=== PATIENT | male | born 1950 | race Caucasian/White ===

== ENCOUNTER 2021-08-30 16:06 | Inpatient (IN) ==
[2021-08-30] MEDS ORDERED: Isovue-370 500 ML BOTTLE IVP ONE (17:28)
[2021-08-30 17:49] LABS: Basophils # 0.1 K/mcL (0.0-0.2); Basophils % 0.5 %; Eosinophils # 0.2 K/mcL (0.0-0.6); Eosinophils % 1.8 %; Hematocrit 44.8 % (37.5-50.1); Hemoglobin 14.7 g/dL (12.9-16.9); Immature Granulocytes % 0.3 % (0-4); Lymphocytes # 2.8 K/mcL (0.6-4.6); Lymphocytes % 27.1 %; Mean Corpuscular HGB Conc 32.8 g/dL (31.6-35.5); Mean Corpuscular Volume 91.4 fL (83.0-100.0); Mean Platelet Volume 9.8 fL (9.4-12.4); Monocytes # 0.9 K/mcL (0.0-1.3); Monocytes % 8.8 %; Neutrophils # 6.4 K/mcL (1.6-8.9); Platelet Count 283 K/mcL (140-400); Red Cell Distribution Width 14.7 % (11.5-14.5); Segmented Neutrophils % 61.5 %; White Blood Count 10.4 K/mcL (4.3-11.1)
[2021-08-30 18:03] LABS: Alanine Aminotransferase 654 Units/L (7-52); Albumin 4.2 g/dL (3.5-5.7); Albumin/Globulin Ratio 1.1 (1.1-2.2); Alkaline Phosphatase 180 Units/L (34-104); Aspartate Amino Transferase 289 Units/L (13-39); BUN/Creatinine Ratio 18 (6-26); Bilirubin,Direct 1.7 mg/dL (0.0-0.2); Bilirubin,Indirect 1.9 mg/dL (0.0-1.0); Bilirubin,Total 3.6 mg/dL (0.3-1.0); Blood Urea Nitrogen 16 mg/dL (8-23); Calcium 9.4 mg/dL (8.6-10.3); Carbon Dioxide 17 mEq/L (23-29); Chloride 113 mEq/L (98-107); Globulin 3.7 g/dL (2.4-3.5); Glucose 87 mg/dL (70-105); Osmolality,Calculated 291 (280-300); Potassium 4.6 mEq/L (3.5-5.1); Sodium 140 mEq/L (136-145); Total Protein 7.9 g/dL (6.4-8.9); eGFR For African Americans > 60 (> 60); eGFR For Non-African Americans > 60 (> 60)
[2021-08-30 18:12] LABS: INR 1.2; Prothrombin Time 13.2 Seconds (9.4-12.1)
[2021-08-30 18:14] LABS: Activated Partial Thrombo Time 36.4 Seconds (26.0-36.0)
[2021-08-30] MEDS ORDERED: Naloxone 0.4 MG/ML INJ IVP PRN (22:50)
[2021-08-30] MEDS ORDERED: Ondansetron 4 MG/2 ML VIAL IVP PRN (22:50)
[2021-08-30] MEDS ORDERED: Dextrose Gel 15 GM/37.5 ML TUBE PO PRN ×2 (22:51)
[2021-08-30] MEDS ORDERED: D5% in Water 1,000 ML IVC PRN (22:51)
[2021-08-30] MEDS ORDERED: *HR* Dextrose 50 % in Water (Syg) 50 ML SYRINGE IVP PRN (22:51)
[2021-08-31] MEDS ORDERED: Ketorolac 30 MG/ML VIAL IVP PRN (04:09)
[2021-08-31] MEDS ORDERED: 0.9 % Sodium Chloride 1,000 ML IVC SCH ×2 (04:15→10:44)
[2021-08-31 05:31] LABS: Basophils # 0.1 K/mcL (0.0-0.2); Basophils % 0.5 %; Eosinophils # 0.2 K/mcL (0.0-0.6); Eosinophils % 2.3 %; Hematocrit 42.7 % (37.5-50.1); Immature Granulocytes % 0.2 % (0-4); Lymphocytes # 3.1 K/mcL (0.6-4.6); Lymphocytes % 33.1 %; Mean Corpuscular HGB Conc 32.8 g/dL (31.6-35.5); Mean Corpuscular Volume 91.4 fL (83.0-100.0); Mean Platelet Volume 9.7 fL (9.4-12.4); Monocytes % 10.2 %; Platelet Count 249 K/mcL (140-400); Red Blood Count 4.67 M/mcL (4.19-5.50); Segmented Neutrophils % 53.7 %; White Blood Count 9.3 K/mcL (4.3-11.1)
[2021-08-31 05:34] LABS: INR 1.2; Prothrombin Time 13.3 Seconds (9.4-12.1)
[2021-08-31 06:10] LABS: Alanine Aminotransferase 613 Units/L (7-52); Albumin 3.9 g/dL (3.5-5.7); Albumin/Globulin Ratio 1.3 (1.1-2.2); Alkaline Phosphatase 180 Units/L (34-104); Aspartate Amino Transferase 279 Units/L (13-39); BUN/Creatinine Ratio 16 (6-26); Bilirubin,Direct 3.4 mg/dL (0.0-0.2); Bilirubin,Indirect 1.2 mg/dL (0.0-1.0); Bilirubin,Total 4.6 mg/dL (0.3-1.0); Blood Urea Nitrogen 13 mg/dL (8-23); Calcium 9.3 mg/dL (8.6-10.3); Carbon Dioxide 18 mEq/L (23-29); Chloride 113 mEq/L (98-107); Glucose 76 mg/dL (70-105); Magnesium 2.1 mg/dL (1.6-2.6); Osmolality,Calculated 289 (280-300); Phosphorous 2.9 mg/dL (2.7-4.5); Potassium 3.4 mEq/L (3.5-5.1); Sodium 140 mEq/L (136-145); Total Protein 6.9 g/dL (6.4-8.9); Troponin I < 0.03 ng/mL (< 0.04); eGFR For African Americans > 60 (> 60); eGFR For Non-African Americans > 60 (> 60)
[2021-08-31] MEDS: Latanoprost 2.5 ML BOTTLE BOTH EYES SCH ×2 (08:04→20:11)
[2021-08-31] MEDS ORDERED: Ondansetron 4 MG/2 ML VIAL IVP PRN (09:53)
[2021-08-31] MEDS ORDERED: *HR* FentaNYL (PF) 100 MCG/2 ML VIAL IVP PRN (09:53)
[2021-08-31] MEDS ORDERED: *HR* FentaNYL (PF) 100 MCG/2 ML VIAL ONE ×4 (10:14→13:02)
[2021-08-31] MEDS ORDERED: Lidocaine -MPF 2% 2 ML VIAL ONE (10:14)
[2021-08-31] MEDS ORDERED: Ondansetron 4 MG/2 ML VIAL ONE (10:14)
[2021-08-31] MEDS ORDERED: *HR* Propofol 200 MG/20 ML VIAL IVP ONE (10:14)
[2021-08-31] MEDS ORDERED: *HR* Succinylcholine 200 MG/10 ML VIAL IVP ONE (10:14)
[2021-08-31] MEDS ORDERED: Lidocaine HCL 4 ML Topical Solution (Laryng-O-Jet Kit Sterile Pak) TP ONE (10:15)
[2021-08-31] MEDS ORDERED: Isovue-370 500 ML BOTTLE IVP ONE (10:51)
[2021-08-31] MEDS ORDERED: Potassium Chloride Elixir 20 MEQ/15 ML UDC PO ONE (10:52)
[2021-08-31] MEDS: Aspirin Enteric Coated 81 MG Tablet PO SCH (17:40)
[2021-08-31] MEDS: amLODIPine 5 MG TABLET PO SCH (17:40)
[2021-08-31] MEDS: allopurinoL 100 MG TABLET PO SCH (17:41)
[2021-08-31] MEDS ORDERED: *HR* Labetalol 20 MG/4 ML SYRINGE IVP ONE (21:57)
[2021-09-01] MEDS ORDERED: Mag Hydrox/Al Hydrox/Simeth 30 ML UDC PO PRN (03:19)
[2021-09-01 03:52] LABS: Basophils % 0.2 %; Hematocrit 42.7 % (37.5-50.1); Hemoglobin 14.2 g/dL (12.9-16.9); Immature Granulocytes % 0.4 % (0-4); Lymphocytes # 2.3 K/mcL (0.6-4.6); Lymphocytes % 18.7 %; Mean Corpuscular HGB Conc 33.3 g/dL (31.6-35.5); Mean Corpuscular Volume 90.1 fL (83.0-100.0); Monocytes % 8.5 %; Neutrophils # 8.8 K/mcL (1.6-8.9); Platelet Count 260 K/mcL (140-400); Red Blood Count 4.74 M/mcL (4.19-5.50); Red Cell Distribution Width 15.2 % (11.5-14.5); Segmented Neutrophils % 72.2 %; White Blood Count 12.2 K/mcL (4.3-11.1)
[2021-09-01 04:37] LABS: Alanine Aminotransferase 615 Units/L (7-52); Albumin 3.9 g/dL (3.5-5.7); Albumin/Globulin Ratio 1.2 (1.1-2.2); Alkaline Phosphatase 186 Units/L (34-104); Aspartate Amino Transferase 239 Units/L (13-39); BUN/Creatinine Ratio 23 (6-26); Bilirubin,Direct 0.4 mg/dL (0.0-0.2); Bilirubin,Indirect 1.1 mg/dL (0.0-1.0); Bilirubin,Total 1.5 mg/dL (0.3-1.0); Blood Urea Nitrogen 18 mg/dL (8-23); Calcium 8.9 mg/dL (8.6-10.3); Carbon Dioxide 19 mEq/L (23-29); Chloride 108 mEq/L (98-107); Globulin 3.3 g/dL (2.4-3.5); Glucose 139 mg/dL (70-105); Osmolality,Calculated 292 (280-300); Potassium 3.5 mEq/L (3.5-5.1); Sodium 139 mEq/L (136-145); Total Protein 7.2 g/dL (6.4-8.9); eGFR For African Americans > 60 (> 60); eGFR For Non-African Americans > 60 (> 60)
[2021-09-01 07:42] VITALS: PULSE 58
[2021-09-01] MEDS: allopurinoL 100 MG TABLET PO SCH (08:13)
[2021-09-01] MEDS: Aspirin Enteric Coated 81 MG Tablet PO SCH (08:13)
[2021-09-01] MEDS: amLODIPine 5 MG TABLET PO SCH (08:13)
[2021-09-01 11:12] VITALS: BP 181/69; TEMP 97.7; O2SAT 95
== END 2021-09-01 15:54 | disposition home or self-care (01) | DRG 445 ==
LOC: EMEROOARM 16:06 → 3ANU 16:06 → SUATTDRO 18:33 → 3ANU 19:50
PROVIDERS: ADMIT Internal Medicine; ATTEND Family Medicine
PROC: ENDOEUS (2021-08-31 10:00)

== ENCOUNTER 2021-09-10 18:35 | Inpatient (IN) ==
[2021-09-10] MEDS ORDERED: Isovue-370 500 ML BOTTLE IVP ONE ×2 (20:11→20:19)
[2021-09-10 20:29] LABS: Basophils # 0.1 K/mcL (0.0-0.2); Basophils % 0.4 %; Eosinophils # 0.5 K/mcL (0.0-0.6); Eosinophils % 3.8 %; Hematocrit 40.3 % (37.5-50.1); Hemoglobin 13.5 g/dL (12.9-16.9); Immature Granulocytes % 0.4 % (0-4); Lymphocytes # 3.4 K/mcL (0.6-4.6); Lymphocytes % 24.8 %; Mean Corpuscular HGB Conc 33.5 g/dL (31.6-35.5); Mean Corpuscular Hemoglobin 29.7 pg (28.0-33.3); Mean Corpuscular Volume 88.8 fL (83.0-100.0); Mean Platelet Volume 9.1 fL (9.4-12.4); Monocytes # 1.4 K/mcL (0.0-1.3); Monocytes % 9.9 %; Neutrophils # 8.4 K/mcL (1.6-8.9); Platelet Count 396 K/mcL (140-400); Red Blood Count 4.54 M/mcL (4.19-5.50); Red Cell Distribution Width 13.9 % (11.5-14.5); Segmented Neutrophils % 60.7 %; White Blood Count 13.8 K/mcL (4.3-11.1)
[2021-09-10 21:08] LABS: Alanine Aminotransferase 54 Units/L (7-52); Albumin 3.6 g/dL (3.5-5.7); Alkaline Phosphatase 89 Units/L (34-104); Aspartate Amino Transferase 25 Units/L (13-39); BUN/Creatinine Ratio 20 (6-26); Bilirubin,Total 0.5 mg/dL (0.3-1.0); Blood Urea Nitrogen 16 mg/dL (8-23); Calcium 9.6 mg/dL (8.6-10.3); Carbon Dioxide 23 mEq/L (23-29); Chloride 104 mEq/L (98-107); Globulin 3.7 g/dL (2.4-3.5); Glucose 98 mg/dL (70-105); Lipase 1630 Units/L (11-82); Osmolality,Calculated 283 (280-300); Potassium 3.7 mEq/L (3.5-5.1); Sodium 136 mEq/L (136-145); Total Protein 7.3 g/dL (6.4-8.9); Troponin I < 0.03 ng/mL (< 0.04); eGFR For African Americans > 60 (> 60); eGFR For Non-African Americans > 60 (> 60)
[2021-09-10] MEDS ORDERED: GI Cocktail 40 ML EACH PO ONE (21:12)
[2021-09-10] MEDS ORDERED: 0.9 % Sodium Chloride 1,000 ML IV ONE (21:45)
[2021-09-11] MEDS ORDERED: Naloxone 0.4 MG/ML INJ IVP PRN (00:31)
[2021-09-11] MEDS ORDERED: Ondansetron 4 MG/2 ML VIAL IVP PRN (00:31)
[2021-09-11] MEDS: 0.9 % Sodium Chloride 1,000 ML IVC SCH ×5 (01:12→23:58)
[2021-09-11 04:53] LABS: Basophils # 0.1 K/mcL (0.0-0.2); Basophils % 0.5 %; Eosinophils # 0.5 K/mcL (0.0-0.6); Eosinophils % 3.8 %; Hemoglobin 13.1 g/dL (12.9-16.9); Immature Granulocytes % 0.3 % (0-4); Lymphocytes # 3.4 K/mcL (0.6-4.6); Lymphocytes % 25.8 %; Mean Corpuscular HGB Conc 32.8 g/dL (31.6-35.5); Mean Corpuscular Hemoglobin 29.2 pg (28.0-33.3); Mean Corpuscular Volume 89.1 fL (83.0-100.0); Mean Platelet Volume 9.3 fL (9.4-12.4); Monocytes # 1.3 K/mcL (0.0-1.3); Monocytes % 9.6 %; Platelet Count 362 K/mcL (140-400); Red Blood Count 4.49 M/mcL (4.19-5.50); Red Cell Distribution Width 13.8 % (11.5-14.5); White Blood Count 13.3 K/mcL (4.3-11.1)
[2021-09-11 04:58] LABS: INR 1.3; Prothrombin Time 14.3 Seconds (9.4-12.1)
[2021-09-11 05:14] LABS: Alanine Aminotransferase 50 Units/L (7-52); Albumin 3.3 g/dL (3.5-5.7); Albumin/Globulin Ratio 0.9 (1.1-2.2); Alkaline Phosphatase 86 Units/L (34-104); Aspartate Amino Transferase 26 Units/L (13-39); BUN/Creatinine Ratio 21 (6-26); Bilirubin,Total 0.5 mg/dL (0.3-1.0); Blood Urea Nitrogen 13 mg/dL (8-23); Calcium 9.1 mg/dL (8.6-10.3); Carbon Dioxide 24 mEq/L (23-29); Chloride 106 mEq/L (98-107); Globulin 3.5 g/dL (2.4-3.5); Glucose 105 mg/dL (70-105); Osmolality,Calculated 286 (280-300); Potassium 3.6 mEq/L (3.5-5.1); Sodium 138 mEq/L (136-145); Total Protein 6.8 g/dL (6.4-8.9); Troponin I < 0.03 ng/mL (< 0.04); eGFR For African Americans > 60 (> 60); eGFR For Non-African Americans > 60 (> 60)
[2021-09-11] MEDS ORDERED: D5% in Water 1,000 ML IVC PRN (07:01)
[2021-09-11] MEDS ORDERED: *HR* Dextrose 50 % in Water (Syg) 50 ML SYRINGE IVP PRN (07:01)
[2021-09-11] MEDS ORDERED: Dextrose Gel 15 GM/37.5 ML TUBE PO PRN ×2 (07:01)
[2021-09-11] MEDS: amLODIPine 5 MG TABLET PO SCH (12:29)
[2021-09-11] MEDS: Aspirin Enteric Coated 81 MG Tablet PO SCH (12:29)
[2021-09-11] MEDS: Insulin LISPRO 300 UNITS/3 ML VIAL SUBQ SCH ×2 (12:30→17:19)
[2021-09-11] MEDS: Latanoprost 2.5 ML BOTTLE BOTH EYES SCH (21:35)
[2021-09-12 04:25] LABS: Basophils # 0.1 K/mcL (0.0-0.2); Basophils % 0.5 %; Eosinophils # 0.5 K/mcL (0.0-0.6); Hematocrit 39.2 % (37.5-50.1); Hemoglobin 13.2 g/dL (12.9-16.9); Immature Granulocytes % 0.3 % (0-4); Lymphocytes # 3.1 K/mcL (0.6-4.6); Lymphocytes % 26.5 %; Mean Corpuscular HGB Conc 33.7 g/dL (31.6-35.5); Mean Corpuscular Hemoglobin 29.4 pg (28.0-33.3); Mean Corpuscular Volume 87.3 fL (83.0-100.0); Mean Platelet Volume 9.2 fL (9.4-12.4); Monocytes # 1.2 K/mcL (0.0-1.3); Monocytes % 10.4 %; Neutrophils # 6.8 K/mcL (1.6-8.9); Platelet Count 371 K/mcL (140-400); Red Blood Count 4.49 M/mcL (4.19-5.50); Red Cell Distribution Width 13.7 % (11.5-14.5); Segmented Neutrophils % 58.3 %; White Blood Count 11.7 K/mcL (4.3-11.1)
[2021-09-12 04:53] LABS: Alanine Aminotransferase 46 Units/L (7-52); Albumin 3.4 g/dL (3.5-5.7); Alkaline Phosphatase 89 Units/L (34-104); Aspartate Amino Transferase 23 Units/L (13-39); BUN/Creatinine Ratio 21 (6-26); Bilirubin,Total 0.5 mg/dL (0.3-1.0); Blood Urea Nitrogen 13 mg/dL (8-23); Carbon Dioxide 21 mEq/L (23-29); Chloride 108 mEq/L (98-107); Globulin 3.4 g/dL (2.4-3.5); Glucose 124 mg/dL (70-105); Lipase 1200 Units/L (11-82); Osmolality,Calculated 290 (280-300); Phosphorous 2.8 mg/dL (2.7-4.5); Potassium 3.7 mEq/L (3.5-5.1); Sodium 139 mEq/L (136-145); Total Protein 6.8 g/dL (6.4-8.9); eGFR For African Americans > 60 (> 60); eGFR For Non-African Americans > 60 (> 60)
[2021-09-12] MEDS: Insulin LISPRO 300 UNITS/3 ML VIAL SUBQ SCH ×5 (05:32→23:43)
[2021-09-12] MEDS ORDERED: Sugammadex Sodium 200 MG/2 ML VIAL IV ONE (08:57)
[2021-09-12] MEDS: allopurinoL 100 MG TABLET PO SCH (10:39)
[2021-09-12] MEDS: amLODIPine 5 MG TABLET PO SCH (10:39)
[2021-09-12] MEDS: Aspirin Enteric Coated 81 MG Tablet PO SCH (10:40)
[2021-09-12] MEDS: 0.9 % Sodium Chloride 1,000 ML IVC SCH (14:11)
[2021-09-12] MEDS: Latanoprost 2.5 ML BOTTLE BOTH EYES SCH (20:56)
[2021-09-13] MEDS: 0.9 % Sodium Chloride 1,000 ML IVC SCH (04:22)
[2021-09-13] MEDS ORDERED: *HR* Labetalol 20 MG/4 ML SYRINGE IVP ONE (04:29)
[2021-09-13] MEDS: Insulin LISPRO 300 UNITS/3 ML VIAL SUBQ SCH (05:29)
[2021-09-13 07:09] VITALS: PULSE 52
[2021-09-13] MEDS: allopurinoL 100 MG TABLET PO SCH (08:29)
[2021-09-13] MEDS: Aspirin Enteric Coated 81 MG Tablet PO SCH (08:29)
[2021-09-13] MEDS: amLODIPine 5 MG TABLET PO SCH (08:29)
[2021-09-13 10:51] VITALS: BP 168/64; TEMP 98.1; O2SAT 97
== END 2021-09-13 13:13 | disposition home or self-care (01) | DRG 439 ==
LOC: EMEROOARM 18:35 → 3BNU 18:35 → SUATTDRO 23:19 → 3BNU 09-11 00:23 → SUATTDRO 09-11 14:21
PROVIDERS: ADMIT Family Medicine; ATTEND Internal Medicine
PROC: ENDOEUS (2021-09-12 08:15)